=== PATIENT | female | born 1940 | race Caucasian/White ===

== ENCOUNTER 2022-04-17 06:50 | Day surgery (SDC) | payer OTHER ==
--- NOTE | 2022-04-14 09:26 | RAD REPORT ---
EXAM DESCRIPTION: Ariadne Reed And Jerald (2 Views)04/14/2022 9:13 am CLINICAL HISTORY: Preop for breast surgery. Hypertension COMPARISON: None FINDINGS: Lungs are moderately to markedly hyperaerated consistent with COPD. The lungs appear clear of acute infiltrate. The heart is normal size IMPRESSION: No acute abnormalities displayed
[2022-04-14 09:55] LABS: Absolute Lymphocytes (CBC) 1.1 K/uL (0.7-4.9); Lymphocytes % 21.8 % (15.3-44.8); MCV 99.1 fL (80-100); MPV 7.2 fL (7.6-11.3); RBC Red Blood Cell Count 3.03 M/uL (3.86-4.86)
[2022-04-14 10:13] LABS: Potassium 4.5 mmol/L (3.5-5.1)
--- NOTE | 2022-04-14 14:31 | EKG ---
Test Date: 2022-04-14 Test Time: 08:58:35 Director Inpatient Headache Program: JUAN MEASUREMENT RESULTS: Intervals: Rate: 54 TN: 192 QRSD: 84 QT: 432 QTc: 409 [place]: P: 66 TN: 192 QRS: 53 T: 73 INTERPRETIVE STATEMENTS: Sinus bradycardia Otherwise normal ECG No previous ECG available for comparison Electronically Signed On 04-14-22 14:30:38 [employer] by Chapin Best
[2022-04-17] MEDS ORDERED: Ringers Lactate 1,000 ML IV ONE ×2 (06:57→13:04)
[2022-04-17] MEDS ORDERED: CEFAZOLIN SODIUM 1 GM/VIAL ONE ×2 (06:57→11:59)
[2022-04-17] MEDS ORDERED: EPINEPHRINE/PF 1 MG/ML AMP ONE (07:41)
[2022-04-17] MEDS ORDERED: dexAMETHasone 10 MG/ML VIAL ONE (07:41)
[2022-04-17] MEDS ORDERED: LIDOCAINE 1% MPF 5 ML VIAL ONE ×2 (07:41→09:37)
[2022-04-17] MEDS ORDERED: BUPIVACAINE 0.25% PF 10 ML VIAL ONE (07:41)
[2022-04-17] MEDS ORDERED: MIDAZOLAM HCL 2 MG/2 ML INJ ONE (07:41)
[2022-04-17] MEDS ORDERED: BUPIVACAINE 0.5% PF 10 ML VIAL ONE (07:42)
--- NOTE | 2022-04-17 09:32 | P.OP ---
Date of Service: 04/17/22 Preop diagnosis: Chronic cholecystitis and cholelithiasis, status post ERCP for choledocholithiasis Postop diagnosis: Same Procedure performed: Laparoscopic cholecystectomy Surgeon: Benedict Henriquez MD Hydration Plant Operator: Leatha MARAVILLA Estimated blood loss: Minimal Specimen: Gallbladder Findings: As above Anesthesia: General Complications: None Drains: None Fluids and blood products: Nonapplicable Disposition: Recovery room Operative note: Patient brought to the OR and placed in the supine position. General anesthesia begun. Patient prepped and draped in the usual sterile fashion. Marcaine 0.5% infiltrated locally. 15 blade used to make a 1 cm supraumbilical midline incision. Subcutaneous tissue divided. Bleeding con trolled with cautery. Fascia identified and divided. #1 Vicryl stay suture placed. Peritoneal cavity entered with sharp and blunt dissection. 12 mm trocar placed into the peritoneal cavity under direct vision. Pneumoperitoneum established. Then, 3 5 mm trochars were placed in the abdomen under direct vision. The first trocar was placed in the epigastric region just to the right of midline. 2 5 mm trochars were placed in the right subcostal region. Laparoscopy revealed chronic inflammation of the gallbladder with some omental adhesions attached to the body of the gallbladder. Adhesions taken down with sharp and blunt dissection. Bleeding controlled with cautery. Fundus of the gallbladder identified and retracted superiorly. Infundibulum identified and retracted inferolaterally. Cystic duct and cystic artery clearly identified with blunt dissection. Clips placed and both structures divided. Gallbladder removed from the liver bed utilizing cautery. Bleeding controlled with cautery. Gallbladder removed via Endo Catch bag through the umbilicus. Pneumoperitoneum reestablished. Laparoscopy revealed no evidence of bleeding or bile leakage appreciated subsequently all trochars removed under direct vision. Stay sutures tied to each other to reapproximate the fascial defect. Subcutaneous wounds irrigated bleeding controlled with cautery. 3-0 chromic used to approximate subcutaneous tissue and close skin. Sterile dressing applied. Patient awakened and taken to recovery room in good general condition. CC: Dr. Perales's office
[2022-04-17] MEDS ORDERED: CODEINE 30MG/APAP 300MG TAB PO PRN (09:33)
[2022-04-17] MEDS ORDERED: KETAMINE HCL 500 MG/5 ML VIAL ONE (09:36)
[2022-04-17] MEDS ORDERED: ROCURONIUM 50 MG/5 ML VIAL IV ONE (09:36)
[2022-04-17] MEDS ORDERED: propofoL 200 MG/20 ML VIAL IV ONE (09:36)
[2022-04-17] MEDS ORDERED: KETOROLAC 30 MG/ML INJ ONE (09:36)
[2022-04-17] MEDS ORDERED: dexAMETHasone 4 MG/ML VIAL ONE (09:37)
[2022-04-17] MEDS ORDERED: ONDANSETRON 4 MG/2 ML VIAL ONE (09:37)
[2022-04-17] MEDS ORDERED: FENTANYL CITR 100 MCG/2 ML ONE (09:38)
[2022-04-17] MEDS ORDERED: ESMOLOL HCL 10 ML IV ONE (09:39)
[2022-04-17] MEDS ORDERED: HYDROMORPHONE HCL 1 MG/ML INJ ONE (09:43)
[2022-04-17] MEDS ORDERED: SUCCINYLCHOLINE 20 MG/ML (10 ML) IV ONE (09:44)
--- NOTE | 2022-04-17 09:59 | RAD REPORT ---
EXAM DESCRIPTION: NM - Lymphoscintigraphy - 04/17/2022 8:49 am CLINICAL HISTORY: Breast cancer COMPARISON: None. TECHNIQUE: 2 injections of a total of 250 millicuries Lymphoseek administered administered intraderm ally at the periareolar region medially and laterally. Subsequently a scintigram was obtained which demonstrated the radiotracer within these locations. IMPRESSION: Right breast lymphoscintigram
[2022-04-17] MEDS: METHYLENE BLUE 0.5% 10 ML AMP ONE ×2 (10:00→12:38)
[2022-04-17] MEDS ORDERED: NS 0.9% VIAL 10 ML ONE ×2 (10:45→11:58)
[2022-04-17] MEDS ORDERED: Mastisol Adhesive Liq ONE ×2 (11:34→12:36)
[2022-04-17] MEDS ORDERED: GLYCOPYRROLATE 0.2 MG/ML SYR ONE (11:34)
--- NOTE | 2022-04-17 12:40 | P.OP ---
Preop diagnosis: Right breast cancer Postop diagnosis: Same Procedure performed: Right breast sentinel node biopsy and axillary dissection, right mastectomy and left simple mastectomy Surgeon: Benedict Henriquez MD Sustain Engineer: Leatha MARAVILLA Estimated blood loss: Minimal Specimen: Molt node x3 positive for metastatic disease, right breast with margins free Findings: As above Anesthesia: General Complications: None Drains: Luis Alberto-Harding drain x2 on the right side and 1 on the left side Fluids and blood products: Nonapplicable Disposition: Recovery room Operative note: Patient brought to the OR and placed in supine position. General anesthesia begun. Patient prepped and draped in the usual sterile fashion after methylene blue injected around the right nipple areolar complex and breast massaged. Counting device utilized to isolate the sentinel node in the right axilla. 3 cm incision made over the sentinel node. A complex of 3 lymph nodes identified and excised. Cautery and clips used as needed. Frozen section revealed metastatic disease. While the frozen section was being performed, a right mastectomy was performed. Flaps via ellipse incision was mad e around the nipple areolar complex. The incision was approximately 20 x 8 cm. Flaps were created superiorly to the clavicle, medially to the sternal border, inferiorly to the insertion of the rectus abdominis muscle and anterior surface of the latissimus dorsi laterally. All breast tissue was removed off of the pectoralis fascia. Bleeding was controlled with 2-0 and 3-0 silk ties as well as cautery. Margin check was performed by pathology and they were clear. Entire wound was irrigated bleeding controlled with cautery 2 Luis Alberto-Harding 10 flat drains were placed. One drain was placed in the axilla and the other underneath the skin flaps. The drains were secured with 3-0 nylon suture. 2-0 chromic and 3-0 chromic were used to close the subcutaneous tissue and skin. Sterile dressing applied. Then, a left simple mastectomy performed in the same fashion as the right mastectomy. Incision size was 20 x 8 cm as well. 1 Luis Alberto-Harding drain 10 flat was placed underneath the flap and secured with 3-0 nylon. 2-0 chromic and 3-0 chromic were used to reapproximate subcutaneous tissue and close skin. Sterile dressing applied and patient awakened. Patient taken to recovery room in good general condition. CC: Dr. Kelly's office
[2022-04-17] MEDS ORDERED: HYDROCODONE/APAP 7.5/325 MG TAB PO PRN (12:42)
[2022-04-17 13:24] VITALS: O2SAT 100
[2022-04-17] MEDS ORDERED: HYDROCODONE/APAP 7.5/325 MG TAB ONE (14:23)
[2022-04-17 15:39] VITALS: BP 154/51; TEMP 97.5
== END 2022-04-17 15:32 | disposition home or self-care (01) ==
LOC: OR 06:50
PROVIDERS: ATTEND Surgery
PROC: 0HTU0ZZ Resection of Left Breast, Open Approach (ICD-10-PCS; 2022-04-17)
PROC: 0HTT0ZZ Resection of Right Breast, Open Approach (ICD-10-PCS; principal; 2022-04-17 09:30)
PROC: 07B50ZX Excision of Right Axillary Lymphatic, Open Approach, Diagnostic (ICD-10-PCS; 2022-04-17 09:30)
DX: C50.411 Malignant neoplasm of upper-outer quadrant of right female breast (principal); I10 Essential (primary) hypertension; E78.5 Hyperlipidemia, unspecified; D64.9 Anemia, unspecified; Z86.73 Personal history of transient ischemic attack (TIA), and cerebral infarction without residual deficits
CPT/HCPCS: 93005; 85025; 80048; 36415; 88331; 88332; 88307 ×2; 88333; 71046; 78195; 19307; 38900; 19303; J2704; J1100 ×2; J0171; J2001 ×2; J2250; J3010; A4216 ×2; J1170; Q9968; J7120 ×2; J2405; J0690 ×2; A9520; 88309; J0330